=== PATIENT | female | born 1995 | race Caucasian/White ===

== ENCOUNTER 2019-02-05 20:54 | Emergency (ER) | payer OTHER ==
[~2019-02-05] VITALS: Ht 162.6 cm; Wt 68.0 kg
[2019-02-05 21:25] VITALS: BP 136/82
--- NOTE | 2019-02-05 21:31 | NUR ---
PT AMBULATED TO LOBBY WITH VSS.
--- NOTE | 2019-02-05 22:22 | NUR ---
PT AMBULATED TO ER BED 8
--- NOTE | 2019-02-05 22:25 | NUR ---
23 YO FEMALE BIB SELF FOR C/O WEAKNESS/ GEE X 1 WEEK. /10 ACHINESS GENERALIZED PAIN. PT STATES SHE RECENTLY FOUND OUT SHE IS = X 16 WEEKS @ [facility]. PT DENIES VISUAL CHANGES @ THIS TIME. DENIES VAGINAL BLEEDING @ THIS TIME. DENIES N/V/D. SKIN PINK WARM DRY INTACT. HX: NONE LMP: 09/2018 AX: NONE
--- NOTE | 2019-02-05 22:35 | NUR ---
DR HERNANDEZ @ BEDSIDE
[2019-02-05] MEDS ORDERED: NACL 0.9% 1,000 ML IV ONE (22:57)
--- NOTE | 2019-02-05 23:05 | NUR ---
HEART TONES VIA DOPPLER UNSUCCESSFUL. ERMD MADE AWARE. L&D TO COME AND CHECK HEART TONES.
[2019-02-05 23:16] LABS: BASOPHILS % (AUTO) 0.5 % (0.0-2.0); EOSINOPHILS # (AUTO) 0.1 K/uL (0-0.4); EOSINOPHILS % (AUTO) 1.5 % (0.0-4.0); HEMATOCRIT 37.3 % (36-48); HEMOGLOBIN 12.8 g/dL (12.0-16.0); LYMPHOCYTES # (AUTO) 1.7 K/uL (2.5-16.5); LYMPHOCYTES % (AUTO) 21.1 % (20.5-51.1); MEAN CORPUSCULAR HEMOGLOBIN 29 pg (27-31); MEAN CORPUSCULAR HGB CONC 34 g/dL (33-37); MEAN CORPUSCULAR VOLUME 85.4 fL (80-94); MONOCYTES # (AUTO) 0.4 K/uL (0.8-1.0); NEUTROPHILS # (AUTO) 5.8 K/uL (1.8-7.7); NEUTROPHILS % (AUTO) 71.9 % (42.2-75.2); PLATELET COUNT (AUTO) 246 K/uL (140-450); RED BLOOD CELL COUNT(AUTO) 4.36 MIL/uL (4.20-5.40); WHITE BLOOD COUNT (AUTO) 8.1 K/uL (4.8-10.8)
[2019-02-05 23:26] LABS: ANION GAP 10.3 (8-16); CARBON DIOXIDE 27.7 mmol/L (21-32); CREATININE 0.5 mg/dL (0.6-1.3)
[2019-02-05 23:26] LABS: APPEARANCE,URINE CLEAR (CLEAR); BILIRUBIN,URINE NEGATIVE (NEGATIVE); BLOOD, URINE NEGATIVE (NEGATIVE); COLOR,URINE YELLOW (YELLOW); LEUKOCYTE ESTERASE ,URINE NEGATIVE (NEGATIVE); NITRITE, URINE NEGATIVE (NEGATIVE); UGLUCOSE NEGATIVE (NEGATIVE)
[2019-02-05 23:31] LABS: ALBUMIN 3.3 g/dL (3.4-5.0); TOTAL BILIRUBIN 0.3 mg/dL (0.0-1.0)
--- NOTE | 2019-02-05 23:35 | NUR ---
L&D UNSUCCESSFUL. ERMD AWARE. ERMD TO PERFORM BEDSIDE ULTRASOUND
[2019-02-06 01:50] VITALS: BP 123/65
--- NOTE | 2019-02-06 01:52 | NUR ---
Patient discharged with v/s stable. Written and verbal after care instructions given and explained. Patient alert, oriented and verbalized understanding of instructions. Ambulatory with steady gait. All questions addressed prior to discharge. ID band removed. Patient advised to follow up with PMD. Rx of MULTI VITAMIN DHA given. Patient educated on indication of medication including possible reaction and side effects. Opportunity to ask questions provided and answered.
--- NOTE | 2019-02-09 13:35 | NUR ---
Late entry. Confirmed with RN that 0.9 NS IV completed at 0100.
== END 2019-02-06 01:52 | disposition home or self-care (01) ==
LOC: MED 20:54
DX: O26.892 Other specified pregnancy related conditions, second trimester (principal); R53.1 Weakness; R51 Headache; Z3A.16 16 weeks gestation of pregnancy
CPT/HCPCS: 36415; 80053; 81003; 83690; 85025; 99283; J7030